=== PATIENT | female | born 1960 | race Caucasian/White ===

== ENCOUNTER 2019-12-27 13:09 | Emergency (ER) | payer OTHER, SELFPAY ==
--- NOTE | 2019-12-27 13:16 | ED.GENADULT ---
HPI - General Adult General Chief complaint: Urogenital-Female Stated complaint: possibl uti Time Seen by Provider: 12/27/19 13:16 Source: patient Mode of arrival: ambulatory Limitations: no limitations History of Present Illness HPI narrative: 59-year-old female patient presents to the [facility] with complaints of urinary pain, urgency and frequency for the past 3 days. Patient states she gets UTIs quite often. Patient states she did have a fever of 99 this morning. Denies any body aches or chills. Patient states she has had a little bit of low back pain denies any abdominal pain. Patient denies taking anything for her symptoms since they started. Related Data Home Medications Medication Instructions Recorded Confirmed Cardio Relax 12/27/19 Celery Seed 500 mg 12/27/19 Hot Flash Ease 12/27/19 Opti Gold 12/27/19 Optimal Vascular 12/27/19 cranberry 4,200 mg PO ONCE 12/27/19 12/27/19 olmesartan 12/27/19 omega 6-oeo-kto-fish oil [Fish Oil] cap 12/27/19 sour aguiar extract [Tart Aguiar mg PO 12/27/19 Extract] turmeric-herbal complex no.[id number] 12/27/19 Allergies Allergy/AdvReac Type Severity Reaction Status Date / Time No Known Allergies Allergy Verified 12/27/19 13:24 Review of Systems Review of Systems: Narrative: CONSTITUTIONAL: Denies fever, chills, or sweats. EYES: Denies visual changes, redness, or discharge. ENT: Denies rhinorrhea, congestion, sore throat, or otalgia. CARDIOVASCULAR: Denies chest pain, palpitations, or edema. RESPIRATORY: Denies cough or dyspnea. GASTROINTESTINAL: Denies abdominal pain, nausea, vomiting, or diarrhea. GENITOURINARY: Positive dysuria or hematuria. Positive urgency and frequency x3 days SKIN: Denies rash or itching. MUSCULOSKELETAL: Denies back pain, joint pain, or myalgia. NEUROLOGIC: Denies headache, numbness, or weakness. PSYCHIATRIC: Denies anxiety or depression. [facility] Past Medical History Medical History (Updated 12/27/19 @ 13:45 by JANIE Rae) Arthritis Hypertension Surgical History Surgical History (Updated 12/27/19 @ 13:45 by JANIE Rae) H/O breast surgery Cyst removed from right breast Comments At the time of my signature I agree with nursing past medical history, surgical, social, and family history. There is no relevant family history pertinent to the presenting complaint. Exam Narrative: Exam Narrative: GENERAL: Well-appearing, well-nourished, and in no acute distress. HEAD: Normocephalic, atraumatic. EYES: PERRLA and EOMI. ENT: Nares clear, no rhinorrhea or epistaxis. Mucous membranes moist. NECK: Supple. No lymphadenopathy CHEST: Clear to auscultation. No respiratory distress. HEART: Regular rate and rhythm. No murmur heard. Normal peripheral pulses. ABDOMEN: Soft, nontender, nondistended, normal active bowel sounds. CVA tenderness noted on percussion to the right side EXTREMITIES: Normal range of motion. No edema. SKIN: Warm, dry, no rash. NEURO: No focal deficits. Alert and oriented x3. Course Vital Signs Vital signs: Vital Signs Temperature 37.2 C 12/27/19 13:22 Pulse Rate 109 H 12/27/19 13:22 Respiratory Rate 18 12/27/19 13:22 Blood Pressure 151/67 H 12/27/19 13:22 Pulse Oximetry 98 12/27/19 13:22 Temperature 37.2 C 12/27/19 13:22 Pulse Rate 109 H 12/27/19 13:22 Respiratory Rate 18 12/27/19 13:22 Blood Pressure 151/67 H 12/27/19 13:22 Pulse Oximetry 98 12/27/19 13:22 Vital signs reviewed. The patient has been informed that they may have pre-hypertension or Hypertension based on a BP reading in the department. I recommend that the patient call the primary care provider listed on their discharge instructions or a physician of their choice this week to arrange follow up for further evaluation of possible pre-hypertension or Hypertension Medical Decision Making Differential Diagnosis Differential Diagnosis: Differential diagnosis: Uncomplicated lower UTI, uncompli
[2019-12-27 13:22] VITALS: BP 151/67; PULSE 109; RESP 18; TEMP 37.2; O2SAT 98
== END 2019-12-27 13:49 | disposition home or self-care (01) ==
PROVIDERS: Emergency Provider Nurse Practitioner Family; PCP Family Medicine Sports Medicine
DX: N30.01 Acute cystitis with hematuria (principal); M19.90 Unspecified osteoarthritis, unspecified site; I10 Essential (primary) hypertension
CPT/HCPCS: 81003; 87077; 87086; 87088; 87186; 99213; G0463